=== PATIENT | female | born 1995 | race Caucasian/White ===

== ENCOUNTER 2021-12-29 20:05 | Emergency (ER) | payer MEDICAID ==
[2021-12-29] MEDS ORDERED: Ketorolac 30 MG/ML SDV IVPUSH ONE (20:38)
[2021-12-29] MEDS ORDERED: Ondansetron 4 MG/2 ML SDV IVPUSH ONE (20:38)
[2021-12-29] MEDS ORDERED: Lactated Ringers 1,000 ML IV SCH (20:45)
== END 2021-12-29 21:23 | disposition left against medical advice (07) ==
LOC: FB.ED 20:05
DX: O21.9 Vomiting of pregnancy, unspecified (principal); Z3A.01 Less than 8 weeks gestation of pregnancy; Z79.899 Other long term (current) drug therapy
CPT/HCPCS: 36415; 80053; 84702; 85025; 96374; 96375; 99282; 99284-25; J1885; J2405; J7120

== ENCOUNTER 2022-08-27 18:29 | Emergency (ER) | payer MEDICAID ==
[2022-08-27 19:21] LABS: ESTIMATED GFR 90 mL/min (>60)
[2022-08-27] MEDS ORDERED: Cephalexin 500 MG Cap PO ONE (20:32)
[2022-08-27] MEDS ORDERED: Rivaroxaban 15 MG Tab PO ONE ×2 (20:33→20:34)
[2022-08-27] MEDS ORDERED: Sulfamethoxazole/Trimethoprim 800-160 MG Tab PO ONE (20:40)
[2022-08-28] MEDS ORDERED: Rivaroxaban 15 MG Tab PO ONE (20:33)
== END 2022-08-27 20:58 | disposition home or self-care (01) ==
LOC: FB.ED 18:29
DX: L03.113 Cellulitis of right upper limb (principal); F15.10 Other stimulant abuse, uncomplicated; J45.909 Unspecified asthma, uncomplicated; D64.9 Anemia, unspecified; Z79.899 Other long term (current) drug therapy; Z79.01 Long term (current) use of anticoagulants
CPT/HCPCS: 36415; 80053; 83735; 85025; 85379; 86140; 99283; 99284; A9270-GY